=== PATIENT | female | born 1975 | race African-American/Black ===

== ENCOUNTER → 2016-07-20 | Outpatient (CLI) | payer OTHER ==
[~2016-07-20] MED LIST: BENTYL 10MG10 MG/CAP PO; PREDNISONE20 MG PO; PRINZIDE 25 MG-1 TAB PO; TENORMIN 5050 MG/TAB PO; VITAMIN D32000 IU PO; ZESTORETIC 25 M1 TAB PO; ZESTRIL 20MG TA20 MG PO; ZESTRIL 5MG5 MG
== END ==
LOC: BHSO 09:25
DX: F10.20 Alcohol dependence, uncomplicated (principal)

== ENCOUNTER → 2016-11-19 | Outpatient (CLI) | payer OTHER ==
[~2016-11-19] VITALS: Ht 162.6 cm; Wt 93.9 kg
[2016-11-19 16:00] VITALS: BP 116/68; PULSE 60
== END ==
LOC: LIGHT 12:04
DX: Z98.84 Bariatric surgery status (principal); E66.9 Obesity, unspecified; Z68.35 Body mass index [BMI] 35.0-35.9, adult; Z71.3 Dietary counseling and surveillance; I10 Essential (primary) hypertension

== ENCOUNTER → 2019-02-19 | Outpatient (CLI) | payer OTHER ==
[~2019-02-19] VITALS: Ht 162.6 cm; Wt 96.4 kg
[~2019-02-19] MED LIST changes: +D3-5050000 IU PO; +FASTIN30 MG PO; +HCTZ 25MG TAB25 MG PO
[2019-02-19 15:51] VITALS: BP 136/84; PULSE 77
== END ==
LOC: LIGHT 02-17 10:44
DX: Z98.84 Bariatric surgery status (principal); I10 Essential (primary) hypertension; E66.9 Obesity, unspecified; Z68.36 Body mass index [BMI] 36.0-36.9, adult; Z71.3 Dietary counseling and surveillance
CPT/HCPCS: G0463